=== PATIENT | female | born 1955 | race Caucasian/White ===

== ENCOUNTER 2016-12-11 12:09 | Inpatient (IN) | payer OTHER ==
[~2016-12-11] VITALS: Ht 160 cm; Wt 106.2 kg
[2016-12-11] VITALS (10 sets, daily range): BP systolic 94–163; BP diastolic 59–89; PULSE 50–99; RESP 16–22; TEMP 98.2–98.9; O2SAT 95–99
[~2016-12-11 12:09] MED LIST: ALBU17I INH; AMOX500T2 PO; IPRA17I INH; PRED20 PO; PROT40TA PO
[2016-12-11] MEDS ORDERED: ASPIRIN 325 MG TAB PO ONE (12:15)
[2016-12-11] MEDS ORDERED: SODIUM CHLORIDE 0.9% FLUSH 10 ML FLUSH IVF PRN (12:15)
--- NOTE | 2016-12-11 12:29 | PD ---
HPI Chief Complaint: Chest Pain Time Seen by Provider: 12:23 Travel History International Travel<30 days: No Contact w/Intl Traveler<30days: No Traveled to known affect area: No History of Present Illness HPI 60-year-old female that presents to the ED for evaluation of chest pain and shortness of breath. Per patient his been ongoing for a couple of months. 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 She had a stress test last week but she doesn't know the results of that. She states that she is currently being given Lasix for what they believe might be CHF. But she is not sure. She is taking Lasix. She does have a history of hypertension, smoking. She also tells me that on her lab work earlier this year she was told that she had a low TSH but no obvious treatment was given at this time. She has an allergy to penicillin. She denies any history of heart disease on herself but she does have a history of heart disease on the family. States that for the past couple months she's been gaining more fluid on her legs and she's been feeling more shortness of breath until today she got more severe shortness of breath with chest pressure which was more severe than the past couple days. Per patient the pain which is not really pain is more of a pressure is 6 out of 10. Patient came here by ambulance and was found to have multiple ectopy on the monitor so she was given lidocaine bolus with results of her chest pressure and shortness of breath as well as for ectopy and once the bolus left persistent she started feeling the same so she was put on a drip at 4 mg/m with good results at this time she is pain-free as well as her shortness of breath has improved. She does have a history of COPD. PFSH Past Medical History Asthma: Yes Cancer: Yes Cardiovascular Problems: Yes COPD: Yes GERD: Yes (2002) Respiratory: Yes Past Surgical History Genitourinary Surgery: Yes (BLADDER TUMOR REMOVAL/2005) Hysterectomy: Yes (PARTIAL/1985) Other Surgery: Yes (RT LUMPECTOMY/2007/BENIGN) Social History Alcohol Use: No Tobacco Use: Yes Substance Use: No Allergies-Medications (Allergen,Severity, Reaction): Coded Allergies: Penicillin (Verified Allergy, Unknown, 12/11/16) Reported Meds & Prescriptions Reported Meds & Active Scripts Active Reported Lasix (Furosemide) 40 Mg Tab 40 Mg PO DAILY Montelukast (Montelukast Sodium) 10 Mg Tab 10 Mg PO HS Aspirin 81 (Aspirin) 81 Mg Tabdr 81 Mg PO DAILY Acyclovir 800 Mg Tab 800 Mg PO DAILY Carbidopa-Levodopa 25-100 Mg Tab 1 Tab PO Q8HR Protonix (Pantoprazole Sodium) 20 Mg Tab 20 Mg PO DAILY Ceftin (Cefuroxime Axetil) 500 Mg Tab 500 Mg PO BID Symbicort Inh (Budesonide/Formoterol Fumarate) 80-4.5 Mcg/Act Aero 2 Puff INH Q12HR Spiriva Handihaler (Tiotropium Inh) 18 Mcg Cap 18 Mcg INH DAILY 1 capsule = 18 mcg Ventolin Hfa 18 GM Inh (Albuterol Sulfate) 90 Mcg/Act Aer 2 Puff INH Q4-6H PRN Atorvastatin (Atorvastatin Calcium) 10 Mg Tab 10 Mg PO HS Prednisone 20 Mg Tab 30 Mg PO DAILY Take 40 mg (2 tablets) daily for 5 days Review of Systems General / Constitutional: No: Fever, Chills, Weight Gain, Weight Loss, Other Eyes: No: Diploplia, Blurred Vision, Photophobia, Drainage, Redness, Foreign Body Sensation, Pain, Tearing, Blind Spots, Visual changes, Blindness, Other HENT: No: Headaches, Vertigo, Lightheadedness, Sore Throat, Rhinitis, Rhinorrhea, Congestion, Nosebleed, Neck Stiffness, Neck Pain, Masses, Gingival Bleeding, Dental Difficulties, Ear Discharge, Earache, Other Cardiovascular: Positive: Chest Pain or Discomfort, Diaphoresis, Edema, No: Palpitations, Irregular Rhythm, Tachycardia, Syncope, Dyspnea on exertion, Varicosities, Cyanosis, Varicosities, Phlebitis, Claudication, Other Respiratory: Positive: Shortness of Breath, No: Cough, Wheezing, Sneezing, Orthopnea, Hemoptysis, Stridor, Night Sweats, Pleuritic Pain, Other Gastrointestinal: No: Nausea, Vomiting, Diarrhea, Abdominal Pain, Hematemesis, Hematochezia, Constipation, Changes in Bowel Habits, Indigestion, Dysphagia, Loss of Appetite, Other Genitourinary: No: Urgency, Frequency, Dysuria, Nocturia, Hematuria, Decreased Urinary Output, Oliguria, Hesitancy, Dribbling, Incontinence, Pelvic Pain, Flank Pain, Dyspareunia, Discharge, Dysmenorrhea, Menorrhagia, Metorrhagia, Vaginal Bleeding, Other Musculoskeletal: Positive: Edema, No: Myalgias, Arthralgias, Limited ROM, Weakness, Cramping, Pain, Atrophy, Other Skin: No Rash, No Itching, No Dryness, No Lumps, No Hives, No Change in Pigmentation, No Change in nails, No Alopecia, No Lesions, No Breast Lumps, No Breast Tenderness, No Breast Swelling, No Other Neurologic: No: Weakness, Dizziness, Syncope, Focal Abnormalities, Coordination Problem, Tremor, Ataxia, Headache, Change in Mentation, Slurred Speech, Paresthesia, Incontinence, Seizures, Sensory Disturbance, Other Psychiatric: No: Anxiety, Depression, Suicidal Ideations, Disorder of Thought, Mood Disorder, Substance Abuse, Homicidal Ideation, Other Endocrine: No: Heat Intolerance, Cold Intolerance, Polyuria, Polydipsia, Other Hematologic/Lymphatic: No: Easy Bruising, Lymph Node Enlargement, Other Physical Exam Narrative GENERAL: SKIN: Warm and dry. HEAD: Atraumatic. Normocephalic. EYES: Pupils equal and round. No scleral icterus. No injection or drainage. ENT: No nasal bleeding or discharge. Mucous membranes pink and moist. Tongue is midline. No uvula deviation. NECK: Trachea midline. No JVD. CARDIOVASCULAR: Regular rate and rhythm with multiple PVCs noted on my exam.. No murmurs, S3, S4. RESPIRATORY: No accessory muscle use. Rales heard in the lung nguyen. Breath sounds equal bilaterally. GASTROINTESTINAL: Abdomen soft, non-tender, nondistended. Hepatic and splenic margins not palpable. MUSCULOSKELETAL: Extremities without clubbing, cyanosis, or edema. No obvious deformities. Full range of motion of the upper and lower extremities bilaterally. Pupils pulses bilaterally. Patient does have 1+ pitting edema in the lower extremities noted. NEUROLOGICAL: Awake and alert. No obvious cranial nerve deficits. Motor grossly within normal limits. Five out of 5 muscle strength in the arms and legs. Normal speech. PSYCHIATRIC: Appropriate mood and affect; insight and judgment normal. Data Data Last Documented VS Vital Signs Date Time Temp Pulse Resp B/P Pulse Ox O2 Delivery O2 Flow Rate FiO2 12/11/16 13:18 88 19 146/79 98 Nasal Cannula 2 12/11/16 12:11 98.7 Orders Electrocardiogram (12/11/16 12:13) Basic Metabolic Panel (Bmp) (12/11/16 12:13) B-Type Natriuretic Peptide (12/11/16 12:13) Ckmb (Isoenzyme) Profile (12/11/16 12:13) Complete Blood Count With Diff (12/11/16 12:13) Magnesium (Mg) (12/11/16 12:13) Prothrombin Time / Inr (Pt) (12/11/16 12:13) Act Partial Throm Time (Ptt) (12/11/16 12:13) Troponin I (12/11/16 12:13) Lipase (12/11/16 12:13) Chest, Single Ap (12/11/16 12:13) Ecg Monitoring (12/11/16 12:13) Bilateral Bp Monitoring (12/11/16 12:13) Iv Access Insert/Monitor (12/11/16 12:13) Oximetry (12/11/16 12:13) Oxygen Administration (12/11/16 12:13) Aspirin (Aspirin) (12/11/16 12:15) Sodium Chloride 0.9% Flush (Ns Flush) (12/11/16 12:15) Methylprednisolone So Succ Inj (Solumedr (12/11/16 12:45) Albuterol-Ipratropium Neb (Duoneb Neb) (12/11/16 12:45) Free Thyroxine (T4) (12/11/16 12:27) Thyroid Stimulating Hormone (12/11/16 12:27) Albuterol Neb (Albuterol Neb) (12/11/16 14:00) Admit Order (Ed Use Only) (12/11/16 14:16) Labs Laboratory Tests Test 12/11/16 12:27 White Blood Count 6.5 TH/MM3 Red Blood Count 4.44 MIL/MM3 Hemoglobin 14.2 GM/DL Hematocrit 43.6 % Mean Corpuscular Volume 98.2 FL Mean Corpuscular Hemoglobin 31.9 PG Mean Corpuscular Hemoglobin 32.5 % Concent Red Cell Distribution Width 13.2 % Platelet Count 183 TH/MM3 Mean Platelet Volume 9.3 FL Neutrophils (%) (Auto) 87.4 % Lymphocytes (%) (Auto) 5.6 % Monocytes (%) (Auto) 6.6 % Eosinophils (%) (Auto) 0.1 % Basophils (%) (Auto) 0.3 % Neutrophils # (Auto) 5.6 TH/MM3 Lymphocytes # (Auto) 0.4 TH/MM3 Monocytes # (Auto) 0.4 TH/MM3 Eosinophils # (Auto) 0.0 TH/MM3 Basophils # (Auto) 0.0 TH/MM3 CBC Comment DIFF FINAL Differential Comment Prothrombin Time 10.4 SEC Prothromb Time International 0.9 RATIO Ratio Activated Partial 25.3 SEC Thromboplast Time Sodium Level 143 MEQ/L Potassium Level 4.0 MEQ/L Chloride Level 108 MEQ/L Carbon Dioxide Level 29.7 MEQ/L Anion Gap 5 MEQ/L Blood Urea Nitrogen 14 MG/DL Creatinine 0.71 MG/DL Estimat Glomerular Filtration 84 ML/MIN Rate Random Glucose 121 MG/DL Calcium Level 8.7 MG/DL Magnesium Level 2.2 MG/DL Total Creatine Kinase 55 U/L Troponin I LESS THAN 0.02 NG/ML B-Type Natriuretic Peptide 101 PG/ML Lipase 105 U/L Free Thyroxine 1.05 NG/DL Thyroid Stimulating Hormone 1.290 uIU/ML [address] [place] [address] Medical Decision Making Medical Screen Exam Complete: Yes Emergency Medical Condition: Yes Medical Record Reviewed: Yes Interpretation(s) EKG shows sinus rhythm but no sign of acute ischemia. Patient does have frequent PVCs read by me and attending. CBC & BMP Diagram 12/11/16 12:27 troponin and CKMB negative TSH WNL BNP in the 100s Last Impressions Chest X-Ray 12/11/16 1213 Signed Impressions: Service Date/Time: Sunday, December 11, 2016 12:29 - CONCLUSION: No acute cardiopulmonary disease identified. Zac Eng MD Differential Diagnosis Chest pain versus a typical chest pain versus arrhythmia versus electrolyte abnormality versus dehydration versus CHF versus STEMI versus n STEMI versus ACS Narrative Course 60-year-old female that presents to the ED for evaluation of chest pressure and shortness of breath. Patient was properly examined and was found to have signs and symptoms consistent with appears to be cardiac disease. Unclear etiology at this time. Labs and imaging ordered. Patient was kept on the lidocaine drip at 4 mg/m that she did get good results. Patient's vitals at this time are within normal limits. Initial EKG did not show any sign of acute ischemia but did show multiple PVCs. Labs were essentially unremarkable. Chest x-ray showed possible fluid. At this time my attending Dr. Treviño evaluated the patient and he recommends speaking with Dr. Pelayo patient's department store salesperson. Patient was given one breathing treatment and Solu-Medrol as she was found to have a lot of rails from her COPD. Dr. Pelayo recommends no cardiac workup at this time. This appears to more related to the COPD exacerbation. Case was discussed in my attending Dr. Treviño who recommends admission to help us. Dr. Vogel was contacted who agrees to admission. Procedures EKG Prior to Arrival: No Diagnosis Primary Impression: Acute exacerbation of chronic obstructive pulmonary disease Additional Impression: Frequent PVCs Admitting Information Admitting Physician Requests: Admit Herbert Carroll Dec 11, 2016 12:29
[2016-12-11 12:43] LABS: AUTOMATED NEUTROPHIL # 5.6 TH/MM3 (1.8-7.7); BASOPHIL % 0.3 % (0.0-2.0); EOSINOPHIL % 0.1 % (0.0-4.0); HEMATOCRIT 43.6 % (35.0-46.0); HEMO FLAGS DIFF FINAL; LYMPH % 5.6 % (9.0-44.0); LYMPHOCYTE # 0.4 TH/MM3 (1.0-4.8); MEAN CELL VOLUME 98.2 FL (80.0-100.0); MEAN CORPUSCULAR HEMOGLOBIN 31.9 PG (27.0-34.0); MEAN CORPUSCULAR HGB CONC 32.5 % (32.0-36.0); MONO % 6.6 % (0.0-8.0); NEUT % 87.4 % (16.0-70.0); PLATELET COUNT 183 TH/MM3 (150-450); RED BLOOD COUNT 4.44 MIL/MM3 (4.00-5.30); RED CELL DISTRIBUTION WIDTH 13.2 % (11.6-17.2); WHITE BLOOD COUNT 6.5 TH/MM3 (4.0-11.0)
[2016-12-11] MEDS ORDERED: methylPREDNISolone SOD SUCC 125 MG/2 ML VIAL IVP ONE (12:45)
[2016-12-11] MEDS ORDERED: RESP: ALBUTEROL 2.5 MG/IPRATROPIUM 0.5 MG NEB (SCH) INH ONE (12:45)
--- NOTE | 2016-12-11 12:47 | PD ---
Physical Exam Date Seen by Provider: Dec 11, 2016 Time Seen by Provider: 12:40 Narrative This is a 60-year-old female with a history of COPD, hyperlipidemia, who presents today via EMS with chest tightness and shortness of breath. The patient states that last night she started sprinting severe chest pressure and tightness. She states that she used her nebulizer however felt extremely fatigued. She also reports that she can only walk about 4 or 5 feet before becoming severely winded and worsening tightness. There is no diaphoresis or nausea noted. She states that she is currently being worked up for heart disease with Dr. Alma Rosa Pelayo. She's had an outpatient stress test that she has not had the results back from yet. When paramedics arrived at the patient's residence, they found her to have frequent PVCs. She was bolused with lidocaine and started on a lidocaine drip. Currently she is at 4 mg/m. Data Data Last Documented VS Vital Signs Date Time Temp Pulse Resp B/P Pulse Ox O2 Delivery O2 Flow Rate FiO2 12/11/16 13:18 88 19 146/79 98 Nasal Cannula 2 12/11/16 12:11 98.7 Orders Electrocardiogram (12/11/16 12:13) Basic Metabolic Panel (Bmp) (12/11/16 12:13) B-Type Natriuretic Peptide (12/11/16 12:13) Ckmb (Isoenzyme) Profile (12/11/16 12:13) Complete Blood Count With Diff (12/11/16 12:13) Magnesium (Mg) (12/11/16 12:13) Prothrombin Time / Inr (Pt) (12/11/16 12:13) Act Partial Throm Time (Ptt) (12/11/16 12:13) Troponin I (12/11/16 12:13) Lipase (12/11/16 12:13) Chest, Single Ap (12/11/16 12:13) Ecg Monitoring (12/11/16 12:13) Bilateral Bp Monitoring (12/11/16 12:13) Iv Access Insert/Monitor (12/11/16 12:13) Oximetry (12/11/16 12:13) Oxygen Administration (12/11/16 12:13) Aspirin (Aspirin) (12/11/16 12:15) Sodium Chloride 0.9% Flush (Ns Flush) (12/11/16 12:15) Methylprednisolone So Succ Inj (Solumedr (12/11/16 12:45) Albuterol-Ipratropium Neb (Duoneb Neb) (12/11/16 12:45) Free Thyroxine (T4) (12/11/16 12:27) Thyroid Stimulating Hormone (12/11/16 12:27) Albuterol Neb (Albuterol Neb) (12/11/16 14:00) Labs Laboratory Tests Test 12/11/16 12:27 White Blood Count 6.5 TH/MM3 Red Blood Count 4.44 MIL/MM3 Hemoglobin 14.2 GM/DL Hematocrit 43.6 % Mean Corpuscular Volume 98.2 FL Mean Corpuscular Hemoglobin 31.9 PG Mean Corpuscular Hemoglobin 32.5 % Concent Red Cell Distribution Width 13.2 % Platelet Count 183 TH/MM3 Mean Platelet Volume 9.3 FL Neutrophils (%) (Auto) 87.4 % Lymphocytes (%) (Auto) 5.6 % Monocytes (%) (Auto) 6.6 % Eosinophils (%) (Auto) 0.1 % Basophils (%) (Auto) 0.3 % Neutrophils # (Auto) 5.6 TH/MM3 Lymphocytes # (Auto) 0.4 TH/MM3 Monocytes # (Auto) 0.4 TH/MM3 Eosinophils # (Auto) 0.0 TH/MM3 Basophils # (Auto) 0.0 TH/MM3 CBC Comment DIFF FINAL Differential Comment Prothrombin Time 10.4 SEC Prothromb Time International 0.9 RATIO Ratio Activated Partial 25.3 SEC Thromboplast Time Sodium Level 143 MEQ/L Potassium Level 4.0 MEQ/L Chloride Level 108 MEQ/L Carbon Dioxide Level 29.7 MEQ/L Anion Gap 5 MEQ/L Blood Urea Nitrogen 14 MG/DL Creatinine 0.71 MG/DL Estimat Glomerular Filtration 84 ML/MIN Rate Random Glucose 121 MG/DL Calcium Level 8.7 MG/DL Magnesium Level 2.2 MG/DL Total Creatine Kinase 55 U/L Troponin I LESS THAN 0.02 NG/ML B-Type Natriuretic Peptide 101 PG/ML Lipase 105 U/L Free Thyroxine 1.05 NG/DL Thyroid Stimulating Hormone 1.290 uIU/ML 3rd Gen [facility] Medical Record Reviewed: Yes Supervised Visit with KARLY: Yes Differential Diagnosis COPD exacerbation versus CHF versus ACS Narrative Course [id number] female who presents with complaints of chest tightness and shortness of breath. The patient was noted to have frequent PVCs when EMS arrived. They loaded her with lidocaine and put her on a drip. The patient arrived with frequent PVCs however she's been observed here and has resolution of her PVCs. The patient does have diffuse expiratory wheezes with tight lung sounds at the bases. She's been given a DuoNeb followed by 2 albuterol nebulizers. She's been loaded with Solu-Medrol 125 mg. I discussed the case with Dr. Alma Rosa Pelayo, patient's bundle clerk, who reports that her nuclear stress test was normal. Given this, this helps confirm that this is likely a pulmonary process. 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 There is a call out to the [facility] hospitalist service. Given the fact that she had PVCs with her COPD exacerbation, I believe that she does meet inpatient patient criteria. She'll need to be observed on a telemetry floor. Diagnosis Primary Impression: Acute exacerbation of chronic obstructive pulmonary disease Additional Impression: frequent paroxysmal ventricular complexes Germain Treviño MD Dec 11, 2016 12:47
[2016-12-11 12:52] LABS: APTT (PATIENT) 25.3 SEC (24.3-30.1); INTERNATIONAL NORMALIZED RATIO 0.9 RATIO; PROTHROMBIN TIME - PATIENT 10.4 SEC (9.8-11.6)
[2016-12-11 13:02] LABS: ANION GAP 5 MEQ/L (5-15); BICARBONATE 29.7 MEQ/L (21.0-32.0); BLOOD UREA NITROGEN 14 MG/DL (7-18); CHLORIDE 108 MEQ/L (98-107); GLOMERULAR FILTRATION RATE 84 ML/MIN (>89); MAGNESIUM 2.2 MG/DL (1.5-2.5); SODIUM (NA) 143 MEQ/L (136-145)
[2016-12-11 13:12] LABS: FREE T4 1.05 NG/DL (0.76-1.46)
[2016-12-11 13:21] LABS: CREATINE KINASE 55 U/L (26-192)
[2016-12-11] MEDS ORDERED: ACYC800T PO (13:41)
[2016-12-11] MEDS ORDERED: CARB25TA9 PO (13:41)
[2016-12-11] MEDS ORDERED: VENTAER INH (13:41)
[2016-12-11] MEDS ORDERED: FURO1TAB60 PO (13:41)
[2016-12-11] MEDS ORDERED: ATOR10TA15 PO (13:41)
[2016-12-11] MEDS ORDERED: SPIRCAP INH (13:41)
[2016-12-11] MEDS ORDERED: ASPI-110 PO (13:41)
[2016-12-11] MEDS ORDERED: MONT10TA4 PO (13:41)
[2016-12-11] MEDS ORDERED: PRED20 PO (13:41)
[2016-12-11] MEDS ORDERED: PANT20 PO (13:41)
[2016-12-11] MEDS ORDERED: SYMB80AE INH (13:41)
[2016-12-11] MEDS ORDERED: CEFT500T3 PO (13:41)
--- NOTE | 2016-12-11 13:43 | RADRPT ---
EXAM DATE/TIME: 12/11/2016 12:29 [facility] COMPARISON: No previous studies available for comparison. INDICATIONS : Short of breath, with congestion. MEDICAL HISTORY : None. SURGICAL HISTORY : None. ENCOUNTER: Initial ACUITY: 1 day PAIN SCORE: 0/10 LOCATION: Bilateral chest FINDINGS: Single AP view of the chest. The lungs are clear. Cardiomediastinal silhouette within normal limits. No evidence of pleural effusion or pneumothorax. CONCLUSION: No acute cardiopulmonary disease identified. Zac Eng MD on December 11, 2016 at 13:41 Board Certified Radiologist. This report was verified electronically.
[2016-12-11] MEDS: RESP: ALBUTEROL 2.5 MG/3 ML NEB (SCH) INH (13:56)
[2016-12-11] MEDS ORDERED: RESP: ALBUTEROL 2.5 MG/3 ML NEB (PRN) INH (16:15)
[2016-12-11] MEDS ORDERED: SODIUM CHLORIDE 0.9% FLUSH 10 ML FLUSH IV FLUSH PRN (16:15)
[2016-12-11] MEDS: ENOXAPARIN SODIUM 40 MG/0.4 ML SYRINGE SQ SCH (16:39)
[2016-12-11] MEDS: LEVOFLOXACIN 750 MG PREMIX INJ 150 ML IV SCH (16:39)
--- NOTE | 2016-12-11 17:57 | HHI.HP ---
[facility] Service [facility] Primary Care Physician [facility] Admission Diagnosis COPD exacerbation, frequent PVCs Diagnoses: Chief Complaint: SOB, chest pain Travel History International Travel<30 Days: No Contact w/Intl Traveler <30 Da: No Traveled to Known Affected Are: No History of Present Illness This is a 60-year-old female with a history of COPD who presents to [facility] with progressive shortness of breath which got worse on Saturday night (2 nights ago). The patient states that this past week on she went to see Dr. Austin who is the patient's visual basic programmer. Patient states that her visual basic programmer heard some wheezing and start the patient on oral prednisone taper and oral Ceftin. The patient states that she transiently improved. The patient states that she was very short of breath, noticed some wheezing and also felt some substantial chest pressure located in the substernal region, nonradiating and radiating to the left arm and in between the shoulder blades. Patient states that walking would make the shortness of breath and the chest tightness worst and the chest tightness improved somewhat with the Solu-Medrol, breathing treatments that she got in the ambulance. He was also noted that when EMS went to pickup the patient they noticed that the patient had frequent PVCs which the patient was loaded on lidocaine and started on a drip. Patient states that her chest pain was 10 over 10 initially now it is 5/10. She also complains of cough, but denies fevers chills, abdominal pain , nausea, vomiting, diarrhea. Review of Systems As per history of present illness, other systems reviewed by me and negative Past Family Social History Past Medical History 1. COPD. 2. Obstructive sleep apnea. Next activity. 3. Restless leg syndrome Past Surgical History 1. Carpal tunnel release on the left arm. 2. Surgery for tennis elbow on the left arm. 3. Bladder tumors removed last on 2010. 4. Lumpectomy of the right breast. 5. Uterine ablation. Reported Medications Lasix (Furosemide) 40 Mg Tab 40 Mg PO DAILY Montelukast (Montelukast Sodium) 10 Mg Tab 10 Mg PO HS Aspirin 81 (Aspirin) 81 Mg Tabdr 81 Mg PO DAILY Acyclovir 800 Mg Tab 800 Mg PO DAILY Carbidopa-Levodopa 25-100 Mg Tab 1 Tab PO Q8HR Protonix (Pantoprazole Sodium) 20 Mg Tab 20 Mg PO DAILY Ceftin (Cefuroxime Axetil) 500 Mg Tab 500 Mg PO BID Symbicort Inh (Budesonide/Formoterol Fumarate) 80-4.5 Mcg/Act Aero 2 Puff INH Q12HR Spiriva Handihaler (Tiotropium Inh) 18 Mcg Cap 18 Mcg INH DAILY 1 capsule = 18 mcg Ventolin Hfa 18 GM Inh (Albuterol Sulfate) 90 Mcg/Act Aer 2 Puff INH Q4-6H PRN Atorvastatin (Atorvastatin Calcium) 10 Mg Tab 10 Mg PO HS Prednisone 20 Mg Tab 30 Mg PO DAILY Take 40 mg (2 tablets) daily for 5 days Allergies: Coded Allergies: Penicillin (Verified Allergy, Unknown, 12/11/16) Active Ordered Medications Current Medications Medications (Trade) Dose Ordered Sig/Leelee Route Start Time Stop Time Status Last Admin (NS Flush) 2 ml BID IV FLUSH 12/11/16 21:00 (NS Flush) 2 ml UNSCH PRN IV FLUSH 12/11/16 16:15 (SoluMEDROL INJ) 60 mg Q6H IVP 12/11/16 20:00 Enoxaparin Sodium 40 mg 40 mg Q24H SQ 12/11/16 17:00 12/11/16 16:39 (Levaquin 750 Mg Premix Inj) 150 ml @ 100 mls/hr Q24H IV 12/11/16 18:00 12/11/16 16:39 Family History Patient's mother had arrhythmia and of colon cancer. Patient had 2 sisters with cancer. One sister from breast cancer and her other sister from pancreatic cancer. Social History Patient is a former smoker quit 2 months ago. Denies current alcohol use, although she states that she used to drink one half years ago. Denies illicit drug use. The patient is lives with her . Has 3 children. Physical Exam Vital Signs Vital Signs Date Time Temp Pulse Resp B/P Pulse Ox O2 Delivery O2 Flow Rate FiO2 12/11/16 17:07 77 18 94/67 98 Nasal Cannula 2 12/11/16 13:18 88 19 146/79 98 Nasal Cannula 2 12/11/16 12:53 99 Nasal Cannula 2.00 12/11/16 12:14 90 20 163/89 98 Nasal Cannula 2 12/11/16 12:14 96 Nasal Cannula 2 12/11/16 12:14 96 Nasal Cannula 2 12/11/16 12:14 99 163/89 12/11/16 12:11 98.7 85 22 163/89 96 Physical Exam GENERAL: This is a well-nourished, well-developed patient, in no apparent distress. SKIN: No rashes, ecchymoses or lesions. Cool and dry. HEAD: Atraumatic. Normocephalic. No temporal or scalp tenderness. EYES: Pupils equal round and reactive. Extraocular motions intact. No scleral icterus. No injection or drainage. ENT: Nose without bleeding, purulent drainage or septal hematoma. Throat without erythema, tonsillar hypertrophy or exudate. Uvula midline. Airway patent. NECK: Trachea midline. No JVD or lymphadenopathy. Supple, nontender, no meningeal signs. CARDIOVASCULAR: Regular rate and rhythm without murmurs, gallops, or rubs. RESPIRATORY: Very decreased breath sounds at bilateral bases, scattered diffuse expiratory wheezing bilaterally. Rales or rhonchi appreciated. GASTROINTESTINAL: Abdomen soft, non-tender, nondistended. No hepato-splenomegaly , or palpable masses. No guarding. MUSCULOSKELETAL: Extremities without clubbing, cyanosis, + 1 edema. No joint tenderness, effusion, or edema noted. No calf tenderness. Negative Homans sign bilaterally. NEUROLOGICAL: Awake and alert. Cranial nerves II through XII intact. Motor and sensory grossly within normal limits. Five out of 5 muscle strength in all muscle groups. Normal speech. Laboratory Laboratory Tests Test 12/11/16 12:27 White Blood Count 6.5 Red Blood Count 4.44 Hemoglobin 14.2 Hematocrit 43.6 Mean Corpuscular Volume 98.2 Mean Corpuscular Hemoglobin 31.9 Mean Corpuscular Hemoglobin 32.5 Concent Red Cell Distribution Width 13.2 Platelet Count 183 Mean Platelet Volume 9.3 Neutrophils (%) (Auto) 87.4 Lymphocytes (%) (Auto) 5.6 Monocytes (%) (Auto) 6.6 Eosinophils (%) (Auto) 0.1 Basophils (%) (Auto) 0.3 Neutrophils # (Auto) 5.6 Lymphocytes # (Auto) 0.4 Monocytes # (Auto) 0.4 Eosinophils # (Auto) 0.0 Basophils # (Auto) 0.0 CBC Comment DIFF FINAL Differential Comment Prothrombin Time 10.4 Prothromb Time International 0.9 Ratio Activated Partial 25.3 Thromboplast Time Sodium Level 143 Potassium Level 4.0 Chloride Level 108 Carbon Dioxide Level 29.7 Anion Gap 5 Blood Urea Nitrogen 14 Creatinine 0.71 Estimat Glomerular Filtration 84 Rate Random Glucose 121 Calcium Level 8.7 Magnesium Level 2.2 Total Creatine Kinase 55 Troponin I LESS THAN 0.02 B-Type Natriuretic Peptide 101 Lipase 105 Free Thyroxine 1.05 Thyroid Stimulating Hormone 1.290 3rd Gen Result Diagram: 12/11/16 1227 12/11/16 1227 Imaging Last Impressions Chest X-Ray 12/11/16 1213 Signed Impressions: Service Date/Time: Sunday, December 11, 2016 12:29 - CONCLUSION: No acute cardiopulmonary disease identified. Zac Eng MD Reviewed by me EKG shows sinus rhythm with frequent PVCs at a ventricular rate of 87 bpm. There are no ST-T changes suggestive of active ischemia. Reviewed by me. Assessment and Plan Problem List: (1) Acute exacerbation of chronic obstructive pulmonary disease ICD Code: J44.1 Status: Acute (2) Frequent PVCs ICD Code: I49.3 Status: Acute (3) Chest tightness ICD Code: R07.89 Status: Acute Assessment and Plan This is a 60-year-old female who presents with complaints of worsening shortness of breath and chest tightness. Patient also found to have frequent PVCs. Patient with acute COPD exacerbation and chest tightness likely secondary to COPD exacerbation. However ACS cannot be ruled out at this time. Patient also with frequent PVCs on for which the patient was given lidocaine IV bolus. ED physician contacted contacted Dr. Pelayo who is the patient's kier drier who stated that the patient's last stress test is negative. The patient to the medical floor Continue IV Solu-Medrol I will start the patient IV Levaquin Supplemental oxygen to keep oxygen saturation more than 92% Placed on DuoNeb nebs every 4 hours and every 2 hours as needed for short of breath and wheezing. Frequent PVCs likely secondary to COPD exacerbation and hypoxemia. Monitor on telemetry. Trend cardiac enzymes enzymes and serial EKGs. Code Status Full code Discussed Condition With Patient, ED physician Physician Certification 2 Midnight Certification Type: Admission for Inpatient Services Order for Inpatient Services The services are ordered in accordance with Medicare regulations or non- Medicare payer requirements, as applicable. In the case of services not specified as inpatient-only, they are appropriately provided as inpatient services in accordance with the 2-midnight benchmark. Estimated LOS (days): 2 days is the estimated time the patient will need to remain in the hospital, assuming treatment plan goals are met and no additional complications. Post-Hospital Plan: Not yet determined Juan Jose Martinez MD Dec 11, 2016 17:56
[2016-12-11] MEDS ORDERED: MORPHINE SULFATE 4 MG/ML INJ IV PUSH PRN (18:15)
[2016-12-11 18:29] LABS: CREATINE KINASE 111 U/L (26-192)
[2016-12-11] MEDS: SODIUM CHLORIDE 0.9% FLUSH 10 ML FLUSH IV FLUSH SCH (18:39)
[2016-12-11] MEDS: PANTOPRAZOLE SOD 40 MG DELAYED RELEASE TAB PO SCH (19:18)
[2016-12-11] MEDS: RESP: ALBUTEROL 2.5 MG/IPRATROPIUM 0.5 MG NEB (SCH) INH ×2 (19:49→20:38)
[2016-12-11] MEDS: methylPREDNISolone SOD SUCC 125 MG/2 ML VIAL IVP SCH (20:25)
--- NOTE | 2016-12-11 22:25 | EKG ---
Date Performed: 12/11/2016 Time Performed: 17:40:16 PTAGE: 60 years EKG: Sinus rhythm WITH OCCASIONAL VENTRICULAR PREMATURE COMPLEXES LOW QRS VOLTAGE ANTEROSEPTAL MYOCARDIAL INFARCTION A BNORMAL ECG PREVIOUS TRACING : 12/11/2016 12.17 Compared to prior tracing no significant change DOCTOR: Elle Barba Interpretating Date/Time 12/11/2016 22:22:26
--- NOTE | 2016-12-11 22:41 | EKG ---
Date Performed: 12/11/2016 Time Performed: 12:17:07 PTAGE: 60 years EKG: Sinus rhythm WITH FREQUENT VENTRICULAR PREMATURE COMPLEXES LOW QRS VOLTAGE SEPTAL MYOCARDIAL INFARCTION ABNORMAL ECG NO PREVIOUS TRACING DOCTOR: Elle Barba Interpretating Date/Time 12/11/2016 22:39:17
[2016-12-12] VITALS (10 sets, daily range): BP systolic 117–139; BP diastolic 58–74; PULSE 59–72; RESP 16–22; TEMP 97.8–99; O2SAT 90–98
[2016-12-12] MEDS: RESP: ALBUTEROL 2.5 MG/IPRATROPIUM 0.5 MG NEB (SCH) INH ×6 (00:52→19:54)
[2016-12-12] MEDS: methylPREDNISolone SOD SUCC 125 MG/2 ML VIAL IVP SCH ×4 (02:09→20:43)
[2016-12-12 06:47] LABS: AUTOMATED NEUTROPHIL # 3.6 TH/MM3 (1.8-7.7); EOSINOPHIL % 0.1 % (0.0-4.0); HEMATOCRIT 40.8 % (35.0-46.0); HEMO FLAGS DIFF FINAL; LYMPH % 9.2 % (9.0-44.0); LYMPHOCYTE # 0.4 TH/MM3 (1.0-4.8); MEAN CELL VOLUME 96.8 FL (80.0-100.0); MEAN CORPUSCULAR HEMOGLOBIN 32.9 PG (27.0-34.0); MONO % 3.2 % (0.0-8.0); NEUT % 87.5 % (16.0-70.0); PLATELET COUNT 182 TH/MM3 (150-450); RED BLOOD COUNT 4.22 MIL/MM3 (4.00-5.30); RED CELL DISTRIBUTION WIDTH 13.5 % (11.6-17.2); WHITE BLOOD COUNT 4.1 TH/MM3 (4.0-11.0)
[2016-12-12 07:00] LABS: BICARBONATE 29.4 MEQ/L (21.0-32.0); POTASSIUM 3.3 MEQ/L (3.5-5.1)
[2016-12-12 08:32] LABS: CREATINE KINASE 58 U/L (26-192)
[2016-12-12] MEDS: SODIUM CHLORIDE 0.9% FLUSH 10 ML FLUSH IV FLUSH SCH ×2 (09:20→20:43)
[2016-12-12] MEDS: PANTOPRAZOLE SOD 40 MG DELAYED RELEASE TAB PO SCH (09:20)
[2016-12-12] MEDS ORDERED: POTASSIUM CHLORIDE 10 MEQ CONTROLLED RELEASE TAB PO ONE (09:45)
--- NOTE | 2016-12-12 17:08 | HHI.PR ---
Subjective Remarks Patient is still complaining of significant dyspnea on exertion Still complains of mild chest tightness rated 2/10 Denies fevers or chills Still with persistent cough Patient satting 94% on 3 L nasal cannula. Objective Vitals Vital Signs Date Time Temp Pulse Resp B/P Pulse Ox O2 Delivery O2 Flow Rate FiO2 12/12/16 08:00 97.9 72 20 117/59 94 12/12/16 07:51 94 Nasal Cannula 3.00 12/12/16 04:14 95 Nasal Cannula 3.00 12/12/16 04:00 98.2 68 18 127/60 90 12/12/16 00:00 98.3 63 16 139/74 91 12/11/16 23:02 81 12/11/16 20:42 98.2 85 22 128/59 95 Nasal Cannula 3 12/11/16 20:00 98.9 62 16 139/61 95 12/11/16 18:49 50 22 128/59 96 Nasal Cannula 3 12/11/16 17:27 78 18 123/67 98 Nasal Cannula 3 12/11/16 17:07 77 18 94/67 98 Nasal Cannula 2 I/O 12/11/16 12/11/16 12/11/16 12/12/16 12/12/16 12/12/16 07:00 15:00 23:00 07:00 15:00 23:00 Intake Total 120 ml 0 ml Balance 120 ml 0 ml Intake Oral 120 ml 0 ml # Voids 0 2 # Bowel Movements 0 0 Result Diagram: 12/12/16 0600 12/12/16 0600 Imaging Last Impressions Chest X-Ray 12/11/16 1213 Signed Impressions: Service Date/Time: Sunday, December 11, 2016 12:29 - CONCLUSION: No acute cardiopulmonary disease identified. Zac Eng MD Objective Remarks GENERAL: This is a well-nourished, well-developed patient, in no apparent distress. SKIN: No rashes, ecchymoses or lesions. Cool and dry. HEAD: Atraumatic. Normocephalic. No temporal or scalp tenderness. EYES: Pupils equal round and reactive. Extraocular motions intact. No scleral icterus. No injection or drainage. ENT: Nose without bleeding, purulent drainage or septal hematoma. Throat without erythema, tonsillar hypertrophy or exudate. Uvula midline. Airway patent. NECK: Trachea midline. No JVD or lymphadenopathy. Supple, nontender, no meningeal signs. CARDIOVASCULAR: Regular rate and rhythm without murmurs, gallops, or rubs. RESPIRATORY: Decreased air entry at bilateral bases, however better air movement compared to yesterday. There is no wheezing, rales or rhonchi auscultated. GASTROINTESTINAL: Abdomen soft, non-tender, nondistended. No hepato-splenomegaly , or palpable masses. No guarding. MUSCULOSKELETAL: Extremities without clubbing, cyanosis, + 1 edema. No joint tenderness, effusion, or edema noted. No calf tenderness. Negative Homans sign bilaterally. NEUROLOGICAL: Awake and alert. Cranial nerves II through XII intact. Motor and sensory grossly within normal limits. Five out of 5 muscle strength in all muscle groups. Normal speech. Medications and IVs Current Medications Medications (Trade) Dose Ordered Sig/Leelee Route Start Time Stop Time Status Last Admin (NS Flush) 2 ml BID IV FLUSH 12/11/16 21:00 12/12/16 09:20 (NS Flush) 2 ml UNSCH PRN IV FLUSH 12/11/16 16:15 (SoluMEDROL INJ) 60 mg Q6H IVP 12/11/16 20:00 12/12/16 12:53 Enoxaparin Sodium 40 mg 40 mg Q24H SQ 12/11/16 17:00 12/11/16 16:39 (Levaquin 750 Mg Premix Inj) 150 ml @ 100 mls/hr Q24H IV 12/11/16 18:00 12/11/16 16:39 (Protonix) 40 mg DAILY PO 12/11/16 18:30 12/12/16 09:20 (Morphine Inj) 2 mg Q3H PRN IV PUSH 12/11/16 18:15 Urinary Catheter: No Vascular Central Line Catheter: No A/P Problem List: (1) Acute exacerbation of chronic obstructive pulmonary disease ICD Code: J44.1 Status: Acute Plan: Patient was admitted to the medical floor. Continue IV Solu-Medrol, will taper dose to 40 mg IV every 8 hours. Continue IV Levaquin. Continue bronchodilators Continue supplemental oxygen to keep oxygen saturation between 90 and 94%. Will add incentive spirometry. (2) Frequent PVCs ICD Code: I49.3 Status: Acute Plan: The patient still having frequent PVCs on telemetry. I will consult cardiology. Continue to monitor on telemetry. Dr. Pelayo is the patient's hangersmith. (3) Chest tightness ICD Code: R07.89 Status: Acute Plan: As per patient chest tightness still present. EKG shows sinus rhythm with frequent PVCs, no ST-T changes suggestive of active ischemia. Troponins negative 2. ACS ruled out. Assessment and Plan Prophylaxis: Protonix. DVT prophylaxis: SCDs, Lovenox subcutaneous. Discharge Planning Continue to monitor and the medical floor. Possible discharge in 1-2 days. Juan Jose Martinez MD Dec 12, 2016 17:08
[2016-12-12] MEDS: LEVOFLOXACIN 750 MG PREMIX INJ 150 ML IV SCH (17:31)
[2016-12-12] MEDS: ENOXAPARIN SODIUM 40 MG/0.4 ML SYRINGE SQ SCH (17:31)
[2016-12-13] VITALS (10 sets, daily range): BP systolic 107–130; BP diastolic 58–77; PULSE 56–92; RESP 17–20; TEMP 97.8–98.3; O2SAT 92–97
[2016-12-13] MEDS: RESP: ALBUTEROL 2.5 MG/IPRATROPIUM 0.5 MG NEB (SCH) INH ×7 (01:03→23:35)
[2016-12-13] MEDS: methylPREDNISolone SOD SUCC 125 MG/2 ML VIAL IVP SCH ×3 (01:41→20:09)
[2016-12-13] MEDS: PANTOPRAZOLE SOD 40 MG DELAYED RELEASE TAB PO SCH (08:51)
[2016-12-13] MEDS: SODIUM CHLORIDE 0.9% FLUSH 10 ML FLUSH IV FLUSH SCH ×2 (08:55→20:09)
--- NOTE | 2016-12-13 09:38 | HHI.PR ---
Subjective Remarks Follow-up for shortness of breath Shortness of breath better but still with dyspnea and mild chest tightness on exertion, had a nuclear stress test a week ago. No nausea or vomiting. Not coughing, lower extremity edema better. On oxygen at home for sleep apnea. Objective Vitals Vital Signs Date Time Temp Pulse Resp B/P Pulse Ox O2 Delivery O2 Flow Rate FiO2 12/13/16 04:00 98.0 60 17 107/59 95 12/13/16 01:04 95 Nasal Cannula 3.00 12/13/16 00:01 98.0 64 17 116/77 95 12/12/16 20:06 71 12/12/16 20:00 98.4 59 16 123/58 94 12/12/16 18:04 98 Nasal Cannula 3.00 12/12/16 16:00 97.8 62 20 128/62 97 12/12/16 12:00 99.0 61 22 126/58 94 I/O 12/12/16 12/12/16 12/12/16 12/13/16 12/13/16 12/13/16 07:00 15:00 23:00 07:00 15:00 23:00 Intake Total 0 ml 480 ml 348 ml 240 ml Output Total 250 ml 500 ml 200 ml Balance 0 ml 230 ml -152 ml 40 ml Intake Oral 0 ml 480 ml 240 ml 240 ml IV Total 108 ml Output Urine Total 250 ml 500 ml 200 ml # Voids 2 # Bowel Movements 0 0 Result Diagram: 12/12/16 0600 12/12/16 0600 Objective Remarks Not in distress, well-nourished, looks stated age, obese. PERRL, pink conjunctiva without injection, anicteric Nose without bleeding, airway patent, oropharynx clear Supple neck, no masses or thyromegaly, trachea midline Normal rate and regular rhythm, no murmurs gallops or rubs appreciated. No PVCs. No wheezing, no crackles. Decreased breath sounds at bases Normal bowel sounds, soft, non-tender, nondistended, no guarding. Extremities without clubbing, cyanosis, 1+ edema. No rash of generalized distribution. Skin is warm and dry. AAO x3, no cranial nerve deficits, moves all 4 extremities, no focal neurologic deficits Normal mood, appropriate affect A/P Problem List: (1) Acute exacerbation of chronic obstructive pulmonary disease ICD Code: J44.1 Status: Acute (2) Frequent PVCs ICD Code: I49.3 Status: Acute (3) Chest tightness ICD Code: R07.89 Status: Acute Assessment and Plan Acute COPD exacerbation, rule out CHF-continue Solu-Medrol, decrease and taper. Switch Levaquin to oral, continue bronchodilators, wean from oxygen. Start incentive spirometry, check echocardiogram. Will give a dose of Lasix intravenously, monitor urine output, check BMP tomorrow. PVCs-The patient still having frequent PVCs on telemetry. Monitor. Mild chest tightness-likely secondary to COPD, had a recent nuclear stress test , will obtain results, As per patient chest tightness still present. EKG shows sinus rhythm with frequent PVCs, no ST-T changes suggestive of active ischemia. Troponins negative 2. ACS ruled out. Hypokalemia-replaced DVT prophylaxis: SCDs, Lovenox subcutaneous. Discharge Planning Possible discharge tomorrow. Rhina Jiménez MD Dec 13, 2016 09:37
[2016-12-13] MEDS ORDERED: FUROSEMIDE 20 MG/2 ML VIAL IV PUSH ONE (09:45)
[2016-12-13] MEDS ORDERED: POTASSIUM CHLORIDE 25 MEQ EFFERVESCENT TAB PO ONE (09:45)
--- NOTE | 2016-12-13 12:32 | EC ---
Study Study Date:12/13/2016 STUDY CONCLUSIONS SUMMARY - Left ventricle: The cavity size was normal. Wall thickness was normal. Systolic function was normal. The estimated ejection fraction was in the range of 55% to 60%. Wall motion was normal; there were no regional wall motion abnormalities. - Aortic valve: Valve area: 1.19cm^2(VTI). Valve area: 1.35cm^2 (Vmax). If LV function is below 40, please consider prescribing an ACEI or ARB or document rationale for non-use. PROCEDURE DATA STUDY STATUS: Elective. Procedure: Transthoracic echocardiography. Image quality was poor. Scanning was performed from the parasternal, apical, and subcostal acoustic windows. Study completion: The patient tolerated the procedure well. Transthoracic echocardiography. M-mode, complete 2D, complete spectral Doppler, and color Doppler. Height: Height: 63in. Weight: Weight: 235.5lb. Body mass index: BMI: 41.8kg/m^2. Body surface area: BSA: 2.07m^2. Patient status: Inpatient. CARDIAC ANATOMY LEFT VENTRICLE: The cavity size was normal. Wall thickness was normal. Systolic function was normal. The estimated ejection fraction was in the range of 55% to 60%. Wall motion was normal; there were no regional wall motion abnormalities. AORTIC VALVE: Trileaflet; normal thickness leaflets. Doppler: Transvalvular velocity was within the normal range. There was no stenosis. No regurgitation. Valve area: 1.19cm^2(VTI). Indexed valve area: 0.57cm^2/m^2 (VTI). Valve area: 1.35cm^2 (Vmax). Indexed valve area: 0.65cm^2/m^2 (Vmax). Mean gradient: 6mm Hg (S). AORTA: Aortic root: The aortic root was normal in size. MITRAL VALVE: Structurally normal valve. Doppler: Transvalvular velocity was within the normal range. There was no evidence for stenosis. Trace regurgitation. Peak gradient: 4mm Hg (D). LEFT ATRIUM: The atrium was normal in size. RIGHT VENTRICLE: The cavity size was normal. Wall thickness was normal. PULMONIC VALVE: Doppler: Transvalvular velocity was within the normal range. There was no evidence for stenosis. No regurgitation. TRICUSPID VALVE: Structurally normal valve. Doppler: Transvalvular velocity was within the normal range. No regurgitation. PULMONARY ARTERY: The main pulmonary artery was normal-sized. Systolic pressure was within the normal range. RIGHT ATRIUM: The atrium was normal in size. PERICARDIUM: There was no pericardial effusion. SYSTEMIC VEINS: Inferior vena cava: The vessel was normal in size. Patient weight: 235.5lb _Ejection fraction:_ 65-75% _Fractional shortening:_ 32% up to 5Kg 5-11.5Kg 11.6-22.9Kg 23-45Kg 45-57Kg Aortic Root 7-13 <17 13-22 17-27 17-27 LA diam 6-13 <23 24-38 33-47 37-40 RVID 10-17 7-15 7-15 7-18 8-17 LVIDd 12-22 <32 24-38 33-47 37-40 LVPW 2-4 3-6 5-7 6-8 7-8 IVS 2-4 3-6 5-7 6-8 7-8 BASIC MEASUREMENTS ADULT NORMAL Left ventricle LV internal dimension, ED, chordal 45.7 mm 43-52 level, PLAX LV internal dimension, ES, chordal 30.4 mm 23-38 level, PLAX Fractional shortening, chordal level, 33 % >29 PLAX LV posterior wall thickness, ED 8.61 mm IVS/LVPW ratio, ED 1.02 <1.3 Ventricular septum Septal thickness, ED 8.79 mm Aortic valve Leaflet separation 19 mm 15-26 Aorta Root diameter, ED 31 mm Left atrium Anterior-posterior dimension 34 mm Anterior-posterior dimension index 1.64 cm/m^2 <2.2 BASIC MEASUREMENTS ADULT NORMAL Aortic valve Leaflet separation 19 mm 15-26 DOPPLER MEASUREMENTS ADULT NORMAL Main pulmonary artery Pressure, S 30 mm Hg =30 Aortic valve Peak velocity, S 148 cm/s Mean velocity, S 111 cm/s VTI, S 35.9 cm Mean gradient, S 6 mm Hg Valve area, VTI 1.19 cm^2 Valve area index, VTI 0.57 cm^2/m^2 Valve area, Vmax 1.35 cm^2 Valve area index, Vmax 0.65 cm^2/m^2 Mitral valve Peak E-wave velocity 98.2 cm/s Peak A-wave velocity 91.8 cm/s Deceleration time *144 ms 150-230 Peak gradient, D 4 mm Hg Peak E/A ratio 1.1 Tricuspid valve Regurgitant peak velocity 232 cm/s Peak RV-RA gradient, S 22 mm Hg Maximal regurgitant velocity 232 cm/s Systemic veins Estimated CVP 10 mm Hg Right ventricle RV pressure, S *32 mm Hg <30 Pulmonic valve Peak velocity, S 72.9 cm/s LEGEND: Mean values are shown as u=mean value. Asterisk (*) baker values outside specified normal range. Prepared and signed by Cash Anderson [id number]
[2016-12-13] MEDS: ENOXAPARIN SODIUM 40 MG/0.4 ML SYRINGE SQ SCH (17:49)
[2016-12-14] VITALS: BP 119/60; PULSE 58; RESP 20; TEMP 98; O2SAT 96
[2016-12-14] MEDS: RESP: ALBUTEROL 2.5 MG/IPRATROPIUM 0.5 MG NEB (SCH) INH ×3 (03:12→08:10)
[2016-12-14 04:00] VITALS: BP 117/56; PULSE 51; RESP 24; TEMP 97.5; O2SAT 92
[2016-12-14 05:41] LABS: POTASSIUM 3.8 MEQ/L (3.5-5.1)
[2016-12-14 08:00] VITALS: BP 133/62; PULSE 40; RESP 20; TEMP 97.7; O2SAT 90
[2016-12-14 08:12] VITALS: O2SAT 96
[2016-12-14] MEDS ORDERED: MILL5TAB2 PO (08:57)
[2016-12-14] MEDS ORDERED: LEVA750T PO (08:57)
[2016-12-14] MEDS: PANTOPRAZOLE SOD 40 MG DELAYED RELEASE TAB PO SCH (08:59)
[2016-12-14] MEDS: SODIUM CHLORIDE 0.9% FLUSH 10 ML FLUSH IV FLUSH SCH (08:59)
[2016-12-14] MEDS: methylPREDNISolone SOD SUCC 125 MG/2 ML VIAL IVP SCH (08:59)
[2016-12-14] MEDS ORDERED: LEVOFLOXACIN 750 MG TAB PO SCH (09:00)
[2016-12-14 09:07] VITALS: PULSE 64
--- NOTE | 2016-12-14 15:51 | HHI.DS ---
Discharge Summary Admission Date Dec 11, 2016 at 14:18 Discharge Date: Dec 14, 2016 Admitting Diagnosis COPD exacerbation, frequent PVCs (1) Acute exacerbation of chronic obstructive pulmonary disease ICD Code: J44.1 Diagnosis: Principal (2) Frequent PVCs ICD Code: I49.3 Diagnosis: Secondary (3) Chest tightness ICD Code: R07.89 Diagnosis: Secondary Procedures None Brief History - From Admission This is a 60-year-old female with a history of COPD who presents to [facility] with progressive shortness of breath which got worse on Saturday night (2 nights ago). The patient states that this past week on she went to see Dr. Austin who is the patient's procurement forester. Patient states that her procurement forester heard some wheezing and start the patient on oral prednisone taper and oral Ceftin. The patient states that she transiently improved. The patient states that she was very short of breath, noticed some wheezing and also felt some substantial chest pressure located in the substernal region, nonradiating and radiating to the left arm and in between the shoulder blades. Patient states that walking would make the shortness of breath and the chest tightness worst and the chest tightness improved somewhat with the Solu-Medrol, breathing treatments that she got in the ambulance. He was also noted that when EMS went to pickup the patient they noticed that the patient had frequent PVCs which the patient was loaded on lidocaine and started on a drip. Patient states that her chest pain was 10 over 10 initially now it is 5/10. She also complains of cough, but denies fevers chills, abdominal pain , nausea, vomiting, diarrhea. CBC/BMP: 12/12/16 0600 12/14/16 0403 Significant Findings Laboratory Tests Test 12/11/16 12/12/16 12/14/16 17:46 06:00 04:03 Troponin I LESS THAN 0.02 LESS THAN 0.02 NG/ML NG/ML (0.02-0.05) (0.02-0.05) Neutrophils (%) (Auto) 87.5 % (16.0-70.0) Lymphocytes # (Auto) 0.4 TH/MM3 (1.0-4.8) Potassium Level 3.3 MEQ/L (3.5-5.1) Random Glucose 178 MG/DL 141 MG/DL (74-106) (74-106) Carbon Dioxide Level 33.0 MEQ/L (21.0-32.0) Blood Urea Nitrogen 24 MG/DL (7-18) Estimat Glomerular Filtration 88 ML/MIN (>89) Rate PE at Discharge Not in distress, well-nourished, looks stated age, obese. PERRL, pink conjunctiva without injection, anicteric Nose without bleeding, airway patent, oropharynx clear Supple neck, no masses or thyromegaly, trachea midline Normal rate and regular rhythm, no murmurs gallops or rubs appreciated. No PVCs. No wheezing, no crackles. Decreased breath sounds at bases Normal bowel sounds, soft, non-tender, nondistended, no guarding. Extremities without clubbing, cyanosis, 1+ edema. No rash of generalized distribution. Skin is warm and dry. AAO x3, no cranial nerve deficits, moves all 4 extremities, no focal neurologic deficits Normal mood, appropriate affect Hospital Course This is a 60-year-old female with history of COPD admitted for shortness of breath. Upon admission, patient was started on Solu-Medrol intravenously and Levaquin. Chest x-ray was unremarkable. Patient was given supportive treatment with bronchodilators and oxygen support. After a few days, patient's respiratory status improved. She was also given a few doses of Lasix. BMP remained stable. She also had mild chest tightness, she allegedly had a nuclear stress test a few weeks ago. EKG shows sinus rhythm with frequent PVCs, no ST-T changes suggestive of active ischemia. She has a follow-up appointment with Dr. Pelayo in a few days. She'll be discharged on a prednisone taper , Levaquin and follow-up with Dr. Pelayo in 4 days. She will continue her Lasix. Pt Condition on Discharge: Good Discharge Disposition: Discharge Home Discharge Time: > 30 minutes Discharge Instructions DIET: Follow Instructions for: Heart Healthy Diet Activities you can perform: Regular-No Restrictions Follow up Referrals: Cardiology - 12/18/16 with Pierce New Medications: Prednisolone (Millipred Dp) 5 Mg Murali 5 TAB PO DIRECTED COPD #1 PACK Levofloxacin (Levaquin) 750 Mg Tab 750 MG PO DAILY Lungs #5 TAB Continued Medications: Acyclovir (Acyclovir) 800 Mg Tab 800 MG PO DAILY Mgmt Viral Infection Ref 0 TAB Albuterol 18 GM Inh (Ventolin Hfa 18 GM Inh) 90 Mcg/Act Aer 2 PUFF INH Q4-6H PRN SHORTNESS OF BREATH #1 Ref [address] (Aspirin 81) 81 Mg Tabdr 81 MG PO DAILY Ref 0 TAB Atorvastatin (Atorvastatin) 10 Mg Tab 10 MG PO HS Cholesterol Management #30 Ref 0 TAB Budesonide-Formoterol Inh (Symbicort Inh) 80-4.5 Mcg/Act Aero 2 PUFF INH Q12HR Asthma Management #1 Ref 0 INHALER Carbidopa-Levodopa (Carbidopa-Levodopa) 25-100 Mg Tab 1 TAB PO Q8HR Parkinson Disease Mgmt #90 Ref 0 TAB Furosemide (Lasix) 40 Mg Tab 40 MG PO DAILY #30 Ref 0 TAB Montelukast (Montelukast) 10 Mg Tab 10 MG PO HS #30 Ref 0 TAB Pantoprazole (Protonix) 20 Mg Tab 20 MG PO DAILY Reflux #30 Ref 0 TAB Tiotropium Inh (Spiriva Handihaler) 18 Mcg Cap 18 MCG INH DAILY 1 capsule = 18 mcg COPD #30 Ref 0 CAP Discontinued Medications: Cefuroxime (Ceftin) 500 Mg Tab 500 MG PO BID Infection Ref 0 TAB Prednisone (Prednisone) 20 Mg Tab 30 MG PO DAILY Take 40 mg (2 tablets) daily for 5 days #10 Ref 0 TAB Rhina Jiménez MD Dec 14, 2016 15:51
== END 2016-12-14 10:35 | disposition home or self-care (01) | DRG 192 ==
LOC: NEPE 12:09 → NEDA 14:18 → N04A 21:17
PROVIDERS: ADMIT Hospitalist; ATTEND Hospitalist
DX: J44.1 Chronic obstructive pulmonary disease with (acute) exacerbation (principal); I50.9 Heart failure, unspecified; Z99.81 Dependence on supplemental oxygen; E87.6 Hypokalemia; I49.3 Ventricular premature depolarization; R07.89 Other chest pain; R09.02 Hypoxemia; G47.33 Obstructive sleep apnea (adult) (pediatric); E78.5 Hyperlipidemia, unspecified; G25.81 Restless legs syndrome; Z87.891 Personal history of nicotine dependence; Z88.0 Allergy status to penicillin
CPT/HCPCS: 71010; 80048; 82550; 83690; 83735; 83880; 84439; 84443; 84484; 85025; 85610; 85730; 93005; 93306; 94150; 94640; 94664; 96374; J1650; J1940; J1956; J2930; J7613